=== PATIENT | female | born 1985 | race Caucasian/White ===

== ENCOUNTER 2021-12-04 17:10 | Emergency (ER) | payer BC, SELFPAY ==
--- NOTE | 2021-12-04 17:20 | USR_ITS ---
PROCEDURE INFORMATION: Exam: US , Limited Exam date and time: 12/04/2021 5:42 PM Age: 36 years old Clinical indication: Lmp or gestational age (in weeks): 19w0d; Antepartum complications; Bleeding; ; Additional info: 18 weeks w/ heavy vaginal bleeding LABS AND CLINICAL REPORTS: Last menstrual period start date: 07/24/2021 Gestational age (Established): 19 w 0 d Estimated due date (Established): 04/30/2022 TECHNIQUE: Imaging protocol: Real-time ultrasound of the maternal uterus with image documentation. Exam focused on the clinical indication. COMPARISON: US pelvic with transvaginal 09/01/2016 1:25 PM FINDINGS: Gestation: Live intrauterine gestation. heart rate: 144 bpm presentation: Breech Placenta: Posterior placenta, no previa. MATERNAL: Cervix: Cervical length measures 4 cm. US/US OB lmt with transvaginal IMPRESSION: Live intrauterine gestation.
[2021-12-04 18:14] VITALS: PULSE 116; RESP 18; TEMP 37.2; O2SAT 97
--- NOTE | 2021-12-04 18:55 | W.ED.GENADLT ---
HPI - General Adult General: Chief complaint: OB/Uterine Contractions Stated complaint: Heavy bleeding 18 weeks preg Time Seen by Provider: 12/04/21 18:15 History of Present Illness: Patient is a 36-year-old female G1, P0 via IVF currently at 18weeks, prior myomectomy presents to the emergency room with concerns of heavy vaginal bleeding since 230 this afternoon. Patient tells me that since 230 this afternoon she has gone through more than 5 pads. Patient notes heavy vaginal bleed without a passage of clots. Patient also complains of lower abdominal cramps. Patient denies any regular contractions, nausea/vomiting, fever/chills, cough, runny nose sore throat, chest pain. Patient has no fever or chills. Patient reports that during her she noticed that her blood pressure has become increasingly elevated and she has been feeling shortness of breath since week 12. Patient reported mild leg swelling bilaterally. Patient denies any vision changes or headache right upper quadrant abdominal pain. Onset:acutely bleeding since 2:30pm Duration:ongoing Location:home Severity:moderate/severe Associated symptoms: Deny chest pain, dyspnea, nausea, rash, palpitations or vomiting Review of Systems Const: Denies: fever(s) or chills Eyes: Denies: change in vision ENMT: Denies: mouth pain Card: Denies: chest pain or palpitations Resp: Denies: dyspnea or non-productive cough GI: Denies: abdominal pain, nausea, vomiting or diarrhea : Reports: other (+heavy vaginal bleeding); Denies: dysuria Musc: Denies: extremity pain Skin/Breast: Denies: rash or new lesions Neuro: Denies: weakness in extremities Psych: Reports: other (Normal mood) Derek/Lymph: Denies: easy bruising PFS ED PFSH: Medical History In vitro fertilization Social History Smoking and tobacco status: never smoked Alcohol intake: never Substance/Drug Use: never Physical Exam Const: COMMON NORMALS: alert HENMT: COMMON NORMALS: atraumatic HEAD & SCALP: atraumatic MOUTH: moist mucous membranes not abnormal Eye: COMMON NORMALS: EOMs intact bilaterally and conjunctivae normal CONJUNCTIVA: Yes conjunctivae normal Neck/C-Spine: COMMON NORMALS: full ROM and supple Resp: COMMON NORMALS: normal respiratory effort and clear to auscultation bilaterally AUSCULTATION: clear to auscultation bilaterally Cardio: RATE: tachycardic GI: COMMON NORMALS: Soft to palpation and non-tender PALPATION: Yes Soft to palpation OTHER: No focal TTP. NO guarding rebound, guarding, rigidity. No CVA tenderness to percussion. Neg Jerez/Neg McBurney's point tenderness, no suprabupic tenderness to palpation. : OTHER: +Pelvic exam supervised by Angel Luis: moderate amount of blood in the vaginal pool, no reaccumulation of blood in the vaginal vault, no signs of active extravasation. Extremity: COMMON NORMALS: full ROM Neuro: SENSORIUM/ORIENTATION: Yes alert MOTOR EXAM: No Abnormal motor strength present and Other motor observations present (no focal motor deficits) Psych: COMMON NORMALS: speech normal SPEECH: Yes normal speech MOOD & AFFECT: Yes euthymic mood Course Vital Signs: Vital signs: Vital Signs Temperature 98.9 F 12/04/21 18:14 Pulse Rate 119 H 12/04/21 19:47 Respiratory Rate 16 12/04/21 19:47 Blood Pressure 159/110 12/04/21 19:47 Pulse Oximetry 97 12/04/21 19:47 Oxygen Delivery Me thod 12/04/21 19:47 MDM - General Adult Medical Decision Making 36-year-old female at at 18 weeks by IVF, prior myomectomy presenting to the emergency room with concerns of vaginal bleeding since 230 this afternoon. Physical exam, patient is noted to have pool of blood. Patient has no signs of active extravasation on pelvic exam. Patient is noted to be tachycardic to the 110s. Patient has gone through 6 pads in 2 hours. Patient is white count 13.5. Hemoglobin 12.3 today. Ultrasound showed IUP with heart rate 144. I discussed the case with Dr. Metz recommended patient be admitted for observation. However at this time, patient elects to see if she can be transferred to [facility] since most of her OB is at [facility]. Case was discussed with Dr. Godinez at [facility] who agreed with the transfer to vaginal bleeding, threatened at 18 weeks. Disposition: Transfer to outside hospital Lab Data : 12/04/21 22:09 12/04/21 18:46 Radiology Impressions Obstetrics Ultrasound 12/04/21 17:20 IMPRESSION: Live intrauterine gestation. Laboratory Results WBC 15.0 10^3/uL (4.0-10.0) H 12/04/21 22:09 RBC 4.25 10^6/uL (4.1-5.3) 12/04/21 22:09 Hgb 12.4 g/dL (11.5-15.3) 12/04/21 22:09 Hct 37.6 % (37.0-47.0) 12/04/21 22:09 MCV 88.5 fl (81-99) 12/04/21 22:09 MCH 29.2 pg (28.0-34.0) 12/04/21 22:09 MCHC 33.0 g/dL (30.0-36.0) 12/04/21 22:09 RDW 14.4 % (12.1-15.1) 12/04/21 22:09 Plt Count 370 10^3/cmm (130-400) 12/04/21 22:09 MPV 9.8 fL (7.4-10.4) 12/04/21 22:09 Neut % (Auto) 73.7 % 12/04/21 22:09 Lymph % (Auto) 20.1 % 12/04/21 22:09 [place] % (Auto) 3.9 % 12/04/21 22:09 Eos % (Auto) 0.9 % 12/04/21 22:09 Baso % (Auto) 0.5 % 12/04/21 22:09 Neut # (Auto) 11.08 10^3/uL (1.8-7.7) H 12/04/21 22:09 Lymph # (Auto) 3.0 10^3/uL (0.8-4.8) 12/04/21 22:09 [place] # (Auto) 0.6 10^3/uL (0.2-0.9) 12/04/21 22:09 Eos # (Auto) 0.1 10^3/uL (0.0-0.8) 12/04/21 22:09 Baso # (Auto) 0.1 10^3/uL (0.0-0.1) 12/04/21 22:09 Nucleated RBC % (auto) 0 % 12/04/21 22:09 Nucleated RBCs # 0.0 /100WBC 12/04/21 22:09 Sodium 134 mmol/L (136-145) L 12/04/21 18:46 Potassium 3.9 mmol/L (3.5-5.1) 12/04/21 18:46 Chloride 100 mmol/L (98-107) 12/04/21 18:46 Carbon Dioxide 22 mmol/L (22-29) 12/04/21 18:46 Anion Gap 15.9 (5-19) 12/04/21 18:46 BUN 7 mg/dL (6-20) 12/04/21 18:46 Creatinine 0.7 mg/dL (0.5-0.9) 12/04/21 18:46 GFR Calculation 93.6 mL/min (90-130) 12/04/21 18:46 Glucose 106 mg/dL (65-115) 12/04/21 18:46 Calculated Osmolality 276 mOsm/kg (285-295) L 12/04/21 18:46 Calcium 9.7 mg/dL (8.5-10.5) 12/04/21 18:46 Total Bilirubin 0.2 mg/dL (0.15-1.2) 12/04/21 18:46 AST 13 U/L (0-32) 12/04/21 18:46 ALT 11 U/L (0-33) 12/04/21 18:46 Alkaline Phosphatase 63 IU/L (35-105) 12/04/21 18:46 NT-Pro-B Natriuret Pep 85 pg/mL (0-125) 12/04/21 18:21 Total Protein 6.7 g/dL (6.6-8.7) 12/04/21 18:46 Albumin 3.6 g/dL (3.5-5.2) 12/04/21 18:46 Globulin 3.1 g/dL (1.3-4.6) 12/04/21 18:46 Ser , Semi-Qnt 86249.00 mIU/mL 12/04/21 18:21 Urine Color Yellow (Yellow) 12/04/21 19:54 Urine Appearance Clear (CLEAR) 12/04/21 19:54 Urine pH 6.5 (5-7) 12/04/21 19:54 Ur Specific [place] 1.010 (1.005-1.030) 12/04/21 19:54 Urine Protein Neg (Negative) 12/04/21 19:54 Urine Glucose (UA) Norm (Normal) 12/04/21 19:54 Urine Ketones Negative (Negative) 12/04/21 19:54 Urine Blood 3+ (Negative) H 12/04/21 19:54 Urine Nitrate Negative (Negative) 12/04/21 19:54 Urine Bilirubin Neg (Negative) 12/04/21 19:54 Urine Urobilinogen Norm mg/dL (Negative) 12/04/21 19:54 Ur Leukocyte Esterase Negative (Negative) 12/04/21 19:54 Urine RBC 25-40 /hpf (0-2) H 12/04/21 19:54 Urine WBC 0-4 /hpf (0-5) H 12/04/21 19:54 Ur Squamous Epith Cells 0-4 /hpf (0-5) H 12/04/21 19:54 Amorphous Sediment Not Reportable 12/04/21 19:54 Urine Bacteria 1+ /hpf (NONE) H 12/04/21 19:54 Blood Type O Positive 12/04/21 18:46 Rho(D) Type Positive 12/04/21 18:46 Imaging Data Other Imaging: Radiologist's impression: [place] [address] Ultrasound Report Signed Patient: Norma Brown Unit #: [id number] : [id number] Age/Sex: 36 / F ADM Date: 12/04/21 Loc: ER Room/Bed: Attending Dr: Ordering Provider/Ordering MD: Griffin Dumas Date of Service: 12/04/21 Procedure(s): US OB lmt with transvaginal Accession Number(s): [id number] Report Number: [id number] PROCEDURE INFORMATION: Exam: US , Limited Exam date and time: 12/04/2021 5:42 PM Age: 36 years old Clinical indication: Lmp or gestational age (in weeks): 19w0d; Antepartum complications; Bleeding; ; Additional info: 18 weeks w/ heavy vaginal bleeding LABS AND CLINICAL REPORTS: Last menstrual period start date: 07/24/2021 Gestational age (Established): 19 w 0 d Estimated due date (Established): 04/30/2022 TECHNIQUE: Imaging protocol: Real-time ultrasound of the maternal uterus with image documentation. Exam focused on the clinical indication. COMPARISON: US pelvic with transvaginal 09/01/2016 1:25 PM FINDINGS: Gestation: Live intrauterine gestation. heart rate: 144 bpm presentation: Breech Placenta: Posterior placenta, no previa. MATERNAL: Cervix: Cervical length measures 4 cm. US/US OB lmt with transvaginal IMPRESSION: Live intrauterine gestation. ? Dictated By: Eugene Hernández DO Signed By: Eugene Hernández DO Signed Date/Time: 12/04/21 1842 DD/ 1742 Discharge Plan Discharge Patient Disposition: Transfer to ED Clinical Impression: Vaginal bleeding, Intrauterine Coding Level of Care Code ED Disbursing Officer for Chg Fwd Exam Comprehensive
[2021-12-04 19:15] LABS: Basophils # 0.1 10^3/uL (0.0-0.1); Basophils % 0.4 %; Eosinophils # 0.1 10^3/uL (0.0-0.8); Hematocrit 36.6 % (37.0-47.0); Hemoglobin 11.9 g/dL (11.5-15.3); Lymphocytes # 1.9 10^3/uL (0.8-4.8); Lymphocytes % 15.5 %; Mean Corpuscular HGB Conc 32.5 g/dL (30.0-36.0); Mean Corpuscular Hemoglobin 29.1 pg (28.0-34.0); Mean Corpuscular Volume 89.5 fl (81-99); Mean Platelet Volume 9.7 fL (7.4-10.4); Monocytes # 0.7 10^3/uL (0.2-0.9); Monocytes % 5.8 %; Neutrophils # 9.53 10^3/uL (1.8-7.7); Neutrophils % 76.3 %; Nucleated Red Blood Cells % 0 %; Platelet Count 344 10^3/cmm (130-400); Red Blood Count 4.09 10^6/uL (4.1-5.3); Red Cell Distribution Width 14.3 % (12.1-15.1); White Blood Count 12.5 10^3/uL (4.0-10.0)
[2021-12-04 19:36] LABS: Alanine Aminotransferase 11 U/L (0-33); Albumin Level 3.6 g/dL (3.5-5.2); Alkaline Phosphatase 63 IU/L (35-105); Anion Gap 15.9 (5-19); Aspartate Amino Transferase 13 U/L (0-32); Blood Urea Nitrogen 7 mg/dL (6-20); Calcium 9.7 mg/dL (8.5-10.5); Carbon Dioxide 22 mmol/L (22-29); Chloride 100 mmol/L (98-107); Globulin 3.1 g/dL (1.3-4.6); Glomerular Filtration Rate 93.6 mL/min (90-130); Glucose 106 mg/dL (65-115); Osmolality Calculated 276 mOsm/kg (285-295); Potassium 3.9 mmol/L (3.5-5.1); Sodium 134 mmol/L (136-145); Total Bilirubin 0.2 mg/dL (0.15-1.2); Total Protein 6.7 g/dL (6.6-8.7)
--- NOTE | 2021-12-04 19:45 | PC.NURSE ---
Pt states she is on her 6th pad in 1 hour.
[2021-12-04 19:47] VITALS: BP 159/110; PULSE 119; RESP 16; O2SAT 97
[2021-12-04 20:11] LABS: NT Pro B Type Natriuretic Pept 85 pg/mL (0-125)
[2021-12-04 20:47] LABS: Basophils # 0.1 10^3/uL (0.0-0.1); Basophils % 0.4 %; Eosinophils # 0.1 10^3/uL (0.0-0.8); Eosinophils % 0.9 %; Hematocrit 37.2 % (37.0-47.0); Hemoglobin 12.3 g/dL (11.5-15.3); Lymphocytes # 2.2 10^3/uL (0.8-4.8); Lymphocytes % 16.6 %; Mean Corpuscular HGB Conc 33.1 g/dL (30.0-36.0); Mean Corpuscular Hemoglobin 29.3 pg (28.0-34.0); Mean Corpuscular Volume 88.6 fl (81-99); Mean Platelet Volume 10.2 fL (7.4-10.4); Monocytes # 0.7 10^3/uL (0.2-0.9); Monocytes % 5.2 %; Neutrophils # 10.25 10^3/uL (1.8-7.7); Neutrophils % 75.7 %; Nucleated Red Blood Cells % 0 %; Platelet Count 364 10^3/cmm (130-400); Red Cell Distribution Width 14.3 % (12.1-15.1); White Blood Count 13.5 10^3/uL (4.0-10.0)
[2021-12-04 20:50] LABS: Add Urine Microscopic? YES; Bilirubin Urine Neg (Negative); Blood Urine 3+ (Negative); Glucose Urine UA Norm (Normal); Ketones Urine Negative (Negative); Leukocyte Esterase Urine Negative (Negative); Nitrate Urine Negative (Negative); Protein Urine Neg (Negative); Urine Appearance Clear (CLEAR); Urine Color Yellow (Yellow); Urobilinogen Urine Norm (Negative); pH Urine 6.5 (5-7)
[2021-12-04 20:51] LABS: Add Urine Culture? Yes; Bacteria Urine 1+ /hpf; RBC Urine 25-40 /hpf (0-2); Squamous Epithelial Cell Urine 0-4 /hpf (0-5); WBC Urine 0-4 /hpf (0-5)
[2021-12-04 22:26] LABS: Basophils # 0.1 10^3/uL (0.0-0.1); Basophils % 0.5 %; Eosinophils # 0.1 10^3/uL (0.0-0.8); Eosinophils % 0.9 %; Hematocrit 37.6 % (37.0-47.0); Hemoglobin 12.4 g/dL (11.5-15.3); Lymphocytes % 20.1 %; Mean Corpuscular Hemoglobin 29.2 pg (28.0-34.0); Mean Corpuscular Volume 88.5 fl (81-99); Mean Platelet Volume 9.8 fL (7.4-10.4); Monocytes # 0.6 10^3/uL (0.2-0.9); Monocytes % 3.9 %; Neutrophils # 11.08 10^3/uL (1.8-7.7); Neutrophils % 73.7 %; Nucleated Red Blood Cells % 0 %; Platelet Count 370 10^3/cmm (130-400); Red Blood Count 4.25 10^6/uL (4.1-5.3); Red Cell Distribution Width 14.4 % (12.1-15.1)
[2021-12-04 23:18] VITALS: BP 146/91; PULSE 114; RESP 18; TEMP 36.8; O2SAT 98
== END 2021-12-04 23:20 ==
PROVIDERS: Physician Assistant; Emergency Provider Emergency Medicine
DX: O46.92 Antepartum hemorrhage, unspecified, second trimester (principal); Z3A.18 18 weeks gestation of pregnancy
CPT/HCPCS: 36415; 76815; 76817; 80053; 81001; 83880; 84702; 85025; 86900; 87086; 99285